=== PATIENT | male | born 1965 | race Caucasian/White ===

== ENCOUNTER 2018-09-12 10:46 | Emergency (ER) | payer MEDICARE ==
[2018-09-12 10:55] VITALS: BP 164/101; PULSE 98; RESP 16; TEMP 97.9
--- NOTE | 2018-09-12 11:38 | ED ---
Psych HPI - General Chief Complaint: Psychiatric Symptoms Stated Complaint: Mental health Time Seen by Provider: 09/12/18 10:55 Source: patient, RN notes reviewed Mode of arrival: ambulatory Limitations: no limitations - History of Present Illness Initial Comments: 53-year-old male presents emergency Department chief complaint of depression, hearing voices. Patient states she's not suicidal or homicidal. He states that he occasionally wants a punched a wall and hurt things in that nature. Patient states that he has been off his psychiatric medications for 7 years he states been diagnosed with schizophrenia and schizoaffective, bipolar disorder. Patient states that he normally discharged control his voices but states that he cannot do it anymore. Patient denies any physical complaints denies chest pain, shortness breath, headache or dizziness. Patient states that his PCP attempted to set up emergency psych visit but he was in [place] he did not want to travel that far. - Related Data Home Medications Medication Instructions Recorded Confirmed traZODone HCL 150 mg PO HS PRN 09/12/18 09/12/18 Previous Rx's Medication Instructions Recorded clonazePAM [KlonoPIN] 1 mg PO BID 7 Days #14 tablet 09/12/18 Allergies Allergy/AdvReac Type Severity Reaction Status Date / Time Iodinated Contrast- Oral and Allergy Anaphylaxis Verified 09/12/18 11:35 IV Dye Review of Systems ROS Statement: Those systems with pertinent positive or pertinent negative responses have been documented in the HPI. ROS Other: All systems not noted in ROS Statement are negative. Past Medical History Past Medical History: No Reported History History of Any Multi-Drug Resistant Organisms: None Reported Past Surgical History: Appendectomy Past Psychological History: Schizophrenia Smoking Status: Never smoker Past Alcohol Use History: Occasional Past Drug Use History: None Reported General Exam Limitations: no limitations General appearance: alert, in no apparent distress Neck exam: Present: normal inspection, full ROM. Absent: tenderness, meningismus, lymphadenopathy Respiratory exam: Present: normal lung sounds bilaterally. Absent: respiratory distress, wheezes, rales, rhonchi, stridor Cardiovascular Exam: Present: regular rate, normal rhythm, normal heart sounds. Absent: systolic murmur, diastolic murmur, rubs, gallop, clicks GI/Abdominal exam: Present: soft, normal bowel sounds. Absent: distended, tenderness, guarding, rebound, rigid Neurological exam: Present: alert, oriented X3, CN II-XII intact Psychiatric exam: Present: depressed Skin exam: Present: warm, dry, intact, normal color. Absent: rash Course Vital Signs 09/12/18 10:51 Temperature 97.9 F Pulse Rate 98 Respiratory 16 Rate Blood Pressure 164/101 O2 Sat by Pulse 96 Oximetry Medical Decision Making - Medical Decision Making 53-year-old male present emergency from for psychiatric evaluation. Patient was evaluated by EPS and case discussed with psychiatrist. Psychiatrist recommends patient be started on Klonopin for anxiety until he can be seen on September 20 for psychiatric evaluation. Patient is not homicidal or suicidal. Patient will have form signed by PCP for evaluation. - Lab Data Lab Results 09/12/18 Range/Units 11:30 Urine Opiates Screen Not Detected (NotDetected) Ur Oxycodone Screen Not Detected (NotDetected) Urine Methadone Screen Not Detected (NotDetected) Ur Propoxyphene Screen Not Detected (NotDetected) Ur Barbiturates Screen Not Detected (NotDetected) U Tricyclic Antidepress Not Detected (NotDetected) Ur Phencyclidine Scrn Not Detected (NotDetected) Ur Amphetamines Screen Not Detected (NotDetected) U Methamphetamines Scrn Not Detected (NotDetected) U Benzodiazepines Scrn Not Detected (NotDetected) Urine Cocaine Screen Not Detected (NotDetected) U Marijuana (THC) Screen Not Detected (NotDetected) Disposition Clinical Impression: Acute anxiety, Schizophrenia Disposition: HOME SELF-CARE Condition: Stable Instructions: Generalized Anxiety Disorder (ED) Additional Instructions: Please return to the Emergency Department if symptoms worsen or any other concerns. Prescriptions: clonazePAM [KlonoPIN] 1 mg PO BID 7 Days #14 tablet Is patient prescribed a controlled substance at d/c from ED?: Yes When asked, does pt state using other controlled substances?: No Referrals: Adilson Bran DO [Primary Care Provider] - 1-2 days Time of Disposition: 13:22
[2018-09-12 11:59] LABS: Amphetamine Screen,Urine Not Detected (NotDetected); Barbiturate Screen,Urine Not Detected (NotDetected); Benzodiazepines Screen,Urine Not Detected (NotDetected); Cocaine Screen,Urine Not Detected (NotDetected); Methadone Screen, Urine Not Detected (NotDetected); Opiate Screen,Urine Not Detected (NotDetected); Oxycodone Screen, Urine Not Detected (NotDetected); Phencyclidine Screen,Urine Not Detected (NotDetected); Tricyclic Antidepressant,Urine Not Detected (NotDetected); Urn Cannabinoid Scrn Not Detected (NotDetected)
== END 2018-09-12 13:34 | disposition home or self-care (01) ==
LOC: EC 10:46
DX: F20.9 Schizophrenia, unspecified (principal); F41.9 Anxiety disorder, unspecified; Z91.041 Radiographic dye allergy status
CPT/HCPCS: 80306; 82075; 99284

== ENCOUNTER 2022-02-16 08:06 | Day surgery (SDC) | payer MEDICARE ==
[2022-02-12 14:18] VITALS: BMI 27.5
[~2022-02-16 08:06] MED LIST: DEXAMETHASONE SOD PHOSPHATE 4 MG/ML 1 ML VIAL IV ONE; LACTATED RINGERS 1,000 ML IV SCH; MIDAZOLAM 2 MG/2 ML VIAL IV PRN; ONDANSETRON 4 MG/2 ML VIAL IVP ONE; Pre Op ABX Message 1 EACH MISC MISCELLANE ONE; SCOPOLAMINE 1 MG/72 HR PATCH TRANSDERM ONE
[2022-02-16] MEDS ORDERED: LIDOCAINE 1% INJ 10MG/ML (20 ML MDV) ONE (09:41)
[2022-02-16] MEDS ORDERED: fentaNYL (PF) 50 MCG/ML 2 ML AMP ONE (09:41)
[2022-02-16] MEDS ORDERED: PROPOFOL 10 MG/ML 20 ML VIAL IV ONE (09:41)
[2022-02-16] MEDS ORDERED: SODIUM CHLORIDE 0.9% 100 ML with ceFAZolin 2,000 MG IV ONE ×2 (09:41)
[2022-02-16] MEDS ORDERED: MIDAZOLAM 2 MG/2 ML VIAL ONE (09:41)
[2022-02-16] MEDS ORDERED: BUPIVACAINE (PF) 0.25% 30 ML VIAL SQ ONE (10:53)
--- NOTE | 2022-02-16 10:54 | P.OP ---
Date of Procedure: 02/16/22 Procedure(s) Performed: PREOPERATIVE DIAGNOSES: 1. Left index finger tip table saw injury with partial amputation with distal phalanx fracture and skin defect; 2. Superficial lacerations middle and ring fingers, left hand POSTOPERATIVE DIAGNOSES: 1. Left index finger tip table saw injury with partial amputation with distal phalanx fracture and skin defect; 2. Superficial lacerations middle and ring fingers, left hand PROCEDURES PERFORMED: 1. Left index finger amputation at level of distal interphalangeal joint and primary closure (CPT 84666) 2. Left index finger debridement (bone, subcutaneous pulp and skin using knife) and irrigation of wound (CPT 87233) ANESTHESIA: rooming house keeper: Jay Walter PA-C(assistance with: Patient positioning, retraction, exposure, debridement, irrigation, repair, closure, dressing) COMPLICATIONS: None ESTIMATED BLOOD LOSS: 2 cc TOURNIQUET: 25 minutes DISPOSITION: To post-anesthesia care unit INDICATIONS: Lyndon is a 56-year-old male with a history of tablesaw injury versus left hand, resulting in an injury with partial amputation of the index finger through the distal phalanx and skin defect. Initial treatment with irrigation and closure in the emergency room. he has a severely comminuted fracture of the index finger tip due to the saw injury which extends down into the joint and has disrupted the central extensor mechanism. I have advised operative treatment with debridement and irrigation of the wound, with possible repair as applicable. He wishes to proceed and he has signed a consent form. PROCEDURE: After appropriate consent was obtained from the patient, he was taken to the operating room and placed in the supine position. General anesthesia was initiated and after confirmation of such anesthesia, the patients left index finger and hand were prepared and draped in the usual aseptic fashion using chlorhexidine prep. Pneumotourniquet was placed high on the arm. Care was taken to make sure that all pressure points were adequately padded and he received IV antibiotics prior to the operation. Time out was called, confirming patient identity, side, procedure, and administration of antibiotics. The index finger tip was inspected after the sutures were removed and found to have a severely comminuted fracture with extension into the joint. Thorough initial irrigation was performed using saline. Tourniquet was then inflated. Multiple small bone fragments without possibility of repair were noted at the residual tissue of the distal phalanx. These fractured fragments were removed sharply and the distal phalanx was shortened to remove any sharp projections. Once the highly comminuted portion of the distal phalanx was removed, it was noted that there was very small residual distal phalanx remaining and the extensor tendon was completely unattached from the distal segment. At this point I felt that complete amputation of the distal phalanx at the level of the distal interphalangeal joint would be the best course of action. Therefore, I went out to speak with the patient's in the surgical lounge waiting area. I explained the situation and asked for her consent to perform a distal interph alangeal joint amputation. I explained that the remaining segment of the distal phalanx was so small that it would be very difficult to envision any significant function coming from this finger tip, and in addition would likely be prone to instability, hypersensitivity, and possible nail remnant growth. I explained that completing the amputation at the distal interphalangeal joint at this point would save this patient likely several weeks to months of unpleasant recovery. Moreover, even if some distal phalangeal length was preserved, there would likely be poor function of this digit due to the aforementioned problems. After careful consideration of these issues, the patient's provided consent to proceed with amputation through the distal interphalangeal joint of the index finger. Subsequently, I returned to the operating room and the distal interphalangeal joint amputation was completed sharply using a knife. The resulting wound was then tested for coverage and found to be adequate for primary closure of the defect with use of the palmar flap of skin. The volar pad was minimally debrided to decrease excessive bulk and allow for easier primary closure over the residual distal phalangeal stump. Flexor and extensor tendons were shortened as necessary. The volar skin was then trimmed as necessary to fit over the distal stump and sutured in place using interrupted 4- 0 nylon sutures. There was complete coverage of the distal stump. Dog ears were removed and further suturing was done as necessary. The middle and ring fingers were inspected and found to have well sutured lacerations without evidence of infection or debris. No procedures were done on either of these fingers besides removal of dried blood. The wound was dressed with non-adherent Adaptic dressing followed by gauze and 1 cling. Coban was lightly applied for compression. The patient tolerated the procedure well and there were no complications. Sponge and needle count were correct.
[2022-02-16 11:14] VITALS: TEMP 98
[2022-02-16] MEDS: HYDROmorphone 0.5 MG/0.5 ML SYRINGE IVP PRN ×3 (11:37→11:55)
[2022-02-16] MEDS ORDERED: LACTATED RINGERS 1,000 ML IV ONE (11:58)
[2022-02-16 13:31] VITALS: BP 132/80; PULSE 65; RESP 18
== END 2022-02-16 13:58 | disposition home or self-care (01) ==
LOC: OR 08:06
PROVIDERS: ATTEND Orthopaedic Surgery
DX: S62.631B Displaced fracture of distal phalanx of left index finger, initial encounter for open fracture (principal); S62.631A Displaced fracture of distal phalanx of left index finger, initial encounter for closed fracture; W27.0XXA Contact with workbench tool, initial encounter; Z91.041 Radiographic dye allergy status; Z87.442 Personal history of urinary calculi; Z79.899 Other long term (current) drug therapy
CPT/HCPCS: 26951; J2250; J1100; J2405; J0690; J2001; J3010; J2704; J1170

== ENCOUNTER → 2025-03-03 | Outpatient (CLI) | payer MEDICARE ==
--- NOTE | 2025-03-03 10:44 | MR ---
INDICATION: Patient age:Male; 59 years old; Reason for study: R41.3 OTHER AMNESIA; [facility]. COMPARISON: None. TECHNIQUE: Multi planar, multi sequence imaging was performed through the brain without administratio n of intravenous contrast. FINDINGS: The branch-white junctions, ventricular system, basal cisterns appear unremarkable. Age-appropriate cer ebral parenchymal volume. Diffusion-weighted imaging shows no evidence of restricted diffusion to sug gest acute/subacute infarct. Intracranial arterial flow voids are maintained. Midline structures show no abnormality. Several foci of high T2/FLAIR signal intensity are seen within the periventricular a nd subcortical white matter. Example includes a right frontal lobe subcortical 4 mm focus (series 601 , image 25). Approximately 25 foci. The susceptibility weighted images do not reveal any evidence for micro-hemorrhage. Remote lacunar injuries within the right cerebellum. The bone marrow signal is wit hin normal limits. The globes are unremarkable. Minimal mucosal thickening of the right inferior max illary sinus with a mucous retention cyst measuring up to 8 mm. Minimal mucosal thickening in the eth moid sinuses. IMPRESSION: 1. No evidence of intracranial mass or acute/subacute infarct. 2. Nonspecific mild white matter changes. Etiologies include small vessel ischemic disease versus dem yelinating disease versus chronic migraines versus other. 3. Remote lacunar injuries within the right cerebellum. [facility], , 03/03/2025 10:42 AM
== END | disposition home or self-care (01) ==
LOC: RADMRIMAIN 09:39
PROVIDERS: ATTEND Psychiatry & Neurology Neurology
DX: R41.3 Other amnesia (principal); R90.82 White matter disease, unspecified
CPT/HCPCS: 70551

== ENCOUNTER → 2025-04-18 | Outpatient (CLI) | payer MEDICARE | END | disposition home or self-care (01) | LOC: RADCTMAIN 04-05 14:34 | PROVIDERS: ATTEND Psychiatry & Neurology Neurology | DX: Z53.9 Procedure and treatment not carried out, unspecified reason (principal) | CPT/HCPCS: 70496; 70498; Q9967 ==